=== PATIENT | male | born 1960 | race African-American/Black ===

== ENCOUNTER 2017-07-11 17:20 | Emergency (ER) | payer MEDICAID ==
[~2017-07-11] VITALS: Ht 182.9 cm; Wt 84.0 kg
[2017-07-11] MEDS ORDERED: KETOROLAC 30MG/ML VIAL IM ONE (22:30)
[2017-07-11] MEDS ORDERED: ONDANSETRON 4MG ODT PO ONE (22:45)
[2017-07-12] MEDS ORDERED: TRAMADOL 50MG TABLET PO SCH (00:30)
[2017-07-12 01:00] VITALS: BP 122/62
== END 2017-07-12 02:01 | disposition home or self-care (01) ==
LOC: ER 17:52
DX: S16.1XXA Strain of muscle, fascia and tendon at neck level, initial encounter (principal); M25.562 Pain in left knee; G89.29 Other chronic pain; F17.210 Nicotine dependence, cigarettes, uncomplicated; J45.909 Unspecified asthma, uncomplicated; E11.9 Type 2 diabetes mellitus without complications; Z79.84 Long term (current) use of oral hypoglycemic drugs; Z98.890 Other specified postprocedural states; Y09 Assault by unspecified means; Y93.89 Activity, other specified; Y92.89 Other specified places as the place of occurrence of the external cause
CPT/HCPCS: 72125; 73562; 82962; 96372; 99284; J1885; Q0162

== ENCOUNTER 2021-12-17 23:50 | Emergency (ER) | payer MEDICAID ==
[~2021-12-17] VITALS: Ht 180.3 cm; Wt 91.0 kg
[2021-12-18 00:23] VITALS: BP 148/66
[2021-12-18 03:00] LABS: BASOPHILS % 0.5 % (0.0-2.0); EOSINOPHILS % 1.7 % (0.0-5.0); HEMATOCRIT. 45.9 % (42.0-52.0); HEMOGLOBIN. 14.4 g/dL (14.0-18.0); LYMPHOCYTES % 40.1 % (20.0-50.0); MEAN CORPUSCULAR HEMOGLOBIN 26.7 pg (28.0-32.0); MEAN CORPUSCULAR VOLUME 85.2 fL (80.0-94.0); MEAN PLATELET VOLUME 8.9 fl (7.4-10.4); NEUTROPHILS % 48.7 % (40.0-76.0); PLATELET 292 x1000/uL (130-400); RED BLOOD CELL COUNT 5.39 mill/uL (4.7-6.1); RED CELL DISTRIBUTION WIDTH 15.9 % (11.6-14.6)
[2021-12-18 03:08] LABS: CHLORIDE 100 mEq/L (98-107)
[2021-12-18] MEDS ORDERED: CEPH500T MT (03:54)
[2021-12-18] MEDS ORDERED: SULF1TAB48 MT (03:54)
== END 2021-12-18 06:00 | disposition home or self-care (01) ==
LOC: ER 23:50
DX: M79.605 Pain in left leg (principal); E11.65 Type 2 diabetes mellitus with hyperglycemia; J45.909 Unspecified asthma, uncomplicated; Z98.890 Other specified postprocedural states
CPT/HCPCS: 36415; 73590; 80053; 83605; 85025; 85651; 86140; 99284